=== PATIENT | female | born 1950 | race African-American/Black ===

== ENCOUNTER 2017-03-15 18:16 | Emergency (ER) | payer OTHER ==
[2017-03-15 18:29] VITALS: BP 152/77; PULSE 85; TEMP 98.5; BMI 29.0
[2017-03-15] MEDS ORDERED: ACETAMINOPHEN 500 MG TABLET (FP) PO ONE (19:20)
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
[2017-03-15] MEDS ORDERED: ACETAMINOPHEN 500 MG TABLET (FP) ONE (19:28)
== END 2017-03-15 19:33 | disposition home or self-care (01) ==
LOC: JERFT 18:16
DX: S13.4XXA Sprain of ligaments of cervical spine, initial encounter (principal); V49.59XA Passenger injured in collision with other motor vehicles in traffic accident, initial encounter; Y92.488 Other paved roadways as the place of occurrence of the external cause; Y93.89 Activity, other specified; Y99.8 Other external cause status
CPT/HCPCS: 99281-25

== ENCOUNTER 2017-08-24 15:33 | Emergency (ER) | payer OTHER ==
--- NOTE | 2017-08-24 15:38 | PDOC ---
Rapid Medical Evaluation Time Seen by Provider: 08/24/17 15:36 Medical Evaluation: Allergies Allergy/AdvReac Type Severity Reaction Status Date / Time Penicillins Allergy Verified 03/15/17 18:29 08/24/17 15:36 I have performed a brief in-person evaluation of this patient. The patient presents with a chief complaint of: "I have a UTI." frequency and dysuria x2 days Pertinent physical exam findings: ABD SNTND. No CVAT. I have ordered the following: UA, urine culture The patient will proceed to the ED for further evaluation. Discharge Disposition - Diagnosis Urinary frequency - Referrals - Patient Instructions - Post Discharge Activity
[2017-08-24 15:47] VITALS: BP 137/90; PULSE 80; TEMP 98.1; BMI 29.0
[2017-08-24 15:58] LABS: URINE APPEARANCE CLOUDY; URINE BILIRUBIN NEGATIVE (<2.0 mg/dL); URINE COLOR AMBER; URINE GLUCOSE (UA) NEGATIVE (NEGATIVE); URINE KETONE NEGATIVE (NEGATIVE); URINE NITRITE NEGATIVE (NEGATIVE); URINE PROTEIN NEGATIVE (NEGATIVE); URINE UROBILINOGEN NEGATIVE mg/dL (0.2-1.0)
[2017-08-24 16:00] LABS: URINE LEUK ESTERASE 1+ (NEGATIVE)
[2017-08-24 16:02] LABS: EPI CELLS RARE /HPF (FEW); URINE MUCUS FEW
--- NOTE | 2017-08-24 17:02 | PDOC ---
History of Present Illness - General Chief Complaint: Urinary Problem Stated Complaint: URINARY PROBLEM Time Seen by Provider: 08/24/17 15:36 History Source: Patient - History of Present Illness Timing/Duration: reports: constant Past History - Past Medical History Allergies/Adverse Reactions: Allergies Allergy/AdvReac Type Severity Reaction Status Date / Time Penicillins Allergy Verified 08/24/17 15:42 Home Medications: Ambulatory Orders Nitrofurantoin Monohyd/M-Cryst [Macrobid -] 100 mg PO BID #14 capsule 08/24/17 COPD: No - Immunization History Immunization Up to Date: Yes - Suicide/Smoking/Psychosocial Hx Smoking History: Never smoked Have you smoked in the past 12 months: No Information on smoking cessation initiated: No Hx Alcohol Use: No Drug/Substance Use Hx: No Substance Use Type: None Review of Systems - Review of Systems Constitutional: No: Chills, Fever ABD/GI: No: Nausea, Vomiting, Abdominal cramping : Yes: Dysuria, Frequency. No: Burning, Discharge, Flank Pain, Hematuria *Physical Exam - Vital Signs Last Vital Signs Temp Pulse Resp BP Pulse Ox 98.1 F 80 16 137/90 100 08/24/17 15:42 08/24/17 15:42 08/24/17 15:42 08/24/17 15:42 08/24/17 15:42 - Physical Exam General Appearance: Yes: Appropriately Dressed. No: Apparent Distress HEENT: positive: Normal Voice Neck: positive: Supple Respiratory/Chest: negative: Respiratory Distress Gastrointestinal/Abdominal: positive: Soft ( ). negative: Tender Musculoskeletal: negative: CVA Tenderness Integumentary: positive: Dry, Warm Neurologic: positive: Fully Oriented, Alert, Normal Mood/Affect ED Treatment Course - ADDITIONAL ORDERS Additional order review: Laboratory Results 08/24/17 15:46 Urine Color Veronica Urine Appearance Cloudy Urine pH 5.0 Ur Specific [place] 1.024 Urine Protein Negative Urine Glucose (UA) Negative Urine Ketones Negative Urine Blood Negative Urine Nitrite Negative Urine Bilirubin Negative Urine Urobilinogen Negative Ur Leukocyte Esterase 1+ H Urine WBC (Auto) 33 Urine RBC (Auto) 6 Ur Epithelial Cells Rare Urine Mucus Few Medical Decision Making - Medical Decision Making 08/24/17 16:58 66-year-old female, history of renal stones, recurrent UTIs, here with urinary frequency with dysuria x several days. States symptoms similar to prior UTI. No hematuria, flank pain, nausea, vomiting, fever or chills. Patient well- appearing and stable with UA remarkable for 1+ leuk esterase. Will treat and follow-up on ucx *DC/Admit/Observation/Transfer Diagnosis at time of Disposition: Urinary frequency - Discharge Dispostion Disposition: HOME Condition at time of disposition: Good - Prescriptions Prescriptions: Nitrofurantoin Monohyd/M-Cryst [Macrobid -] 100 mg PO BID #14 capsule - Referrals Referrals: Jose Alvarez MD [Primary Care Provider] - - Patient Instructions Printed Discharge Instructions: DI for Urinary Tract Infection (UTI) Additional Instructions: Take antibiotics as prescribed. We will call you if urine culture shows us that the antibiotic you were prescribed is not going to cover your infection. Return to ER for any worsening of symptoms. Otherwise follow-up with your primary doctor - Post Discharge Activity
== END 2017-08-24 17:04 | disposition home or self-care (01) ==
LOC: JERFT 15:33
DX: N39.0 Urinary tract infection, site not specified (principal); Z87.442 Personal history of urinary calculi
CPT/HCPCS: 81003; 81015; 87086; 99281-25

== ENCOUNTER 2019-12-22 16:31 | Emergency (ER) | payer OTHER ==
[2019-12-22 16:41] VITALS: BP 143/64; PULSE 99; TEMP 97.2; BMI 27.4
--- NOTE | 2019-12-22 17:29 | PDOC ---
History of Present Illness - General Chief Complaint: Pain Stated Complaint: SWOLLEN LEG Time Seen by Provider: 12/22/19 16:52 History Source: Patient Exam Limitations: No Limitations - History of Present Illness Initial Comments: 12/22/19 17:26 HISTORY OF PRESENT ILLNESS: 69-year-old woman who denies medical history presents emergency department for evaluation of atraumatic left lower leg swelling worsening over the past 7 days. Patient reports the swelling started in the left popliteal fossa now is extended distal and circumferential to the anterior knee. She reports she also has some pain which originates in the left hip and radiates down the left leg. She denies any recent travel, hormone therapy, smoking prolonged immobility. She denies trauma. No recent travel or sick contacts. PAST MEDICAL HISTORY: Denies past medical history SURGICAL HISTORY: Denies ALLERGIES: Penicillin REVIEW OF SYSTEMS General/Constitutional: Denies fever or chills. Denies weakness, weight change. HEENT: Denies change in vision. Denies ear pain or discharge. Denies sore throat. Cardiovascular: Denies chest pain or shortness of breath. Respiratory: Denies cough, wheezing, or hemoptysis. Gastrointestinal: Denies nausea, vomiting, diarrhea or constipation. Denies rectal bleeding. Genitourinary: Denies dysuria, frequency, or change in urination. Musculoskeletal: See HPI Skin and breasts: Denies rash or easy bruising. Neurologic: Denies headache, vertigo, loss of consciousness, or loss of sensation. Psychiatric: Denies depression or anxiety. Endocrine: Denies increased thirst. Denies abnormal weight change. Hematologic/Lymphatic: Denies anemia, easy bleeding, or history of blood clots. Allergic/Immunologic: Denies hives or skin allergy. Denies latex allergy. PHYSICAL EXAM General Appearance: Well-appearing, appropriately dressed. No apparent distress, no intoxication. Cardiovascular: RRR. S1, S2. No JVD, murmur, bradycardia, tachycardia. Vascular Pulses: Dorsalis-Pedis (R): 2+, Dorsalis-Pedis (L): 2+ Musculoskeletal/Extremities: Swelling present to the left popliteal fossa extending to the left anterior knee. Full active range of motion with flexion and extension of the left knee noted. No erythema is present. No bony deformity, crepitus, deformity or step-off is appreciated. No laxity present in the knee. Left patella is mobile. Neurovascularly intact. Integumentary: Appropriate color, dry, warm. No cyanosis, erythema, jaundice or rash Past History - Medical History Allergies/Adverse Reactions: Allergies Allergy/AdvReac Type Severity Reaction Status Date / Time Penicillins Allergy Verified 12/22/19 16:41 Home Medications: Ambulatory Orders Nitrofurantoin Monohyd/M-Cryst [Macrobid -] 100 mg PO BID #14 capsule 08/24/17 COPD: No Other medical history: DENIES - Reproductive History Is Patient Now?: No - Immunization History Immunization Up to Date: Yes - Psycho-Social/Smoking History Smoking History: Never smoked Have you smoked in the past 12 months: No Information on smoking cessation initiated: No - Substance Abuse Hx (Audit-C & DAST Scrn) How often the patient has a drink containing alcohol: Never Score: In Men: 4 or > Positive; In Women: 3 or > Positive: 0 Screen Result (Pos requires Nsg. Audit-10AR): Negative In the last yr the pt used illegal drug/Rx for NonMed reason: No Score: Yes response is considered Positive: 0 Screen Result (Positive result requires Nsg. DAST-10): Negative *Physical Exam - Vital Signs Last Vital Signs Temp Pulse Resp BP Pulse Ox 97.2 F L 99 H 18 143/64 98 12/22/19 16:38 12/22/19 16:38 12/22/19 16:38 12/22/19 16:38 12/22/19 16:38 ED Treatment Course - RADIOLOGY Radiology Studies Ordered: Category Date Time Status DUPLEX VASCUL US-1 LEG [US] Stat Ultrasound 12/22/19 17:25 Ordered Medical Decision Making - Medical Decision Making 12/22/19 17:29 A/P: 69-year-old woman with unilateral swelling to the left knee Duplex Dopplers Reassess 12/22/19 18:57 Ultrasound is read by Dr. Salas: No DVT is identified involving the left leg. Note is made of an approximate 3.7 x 3 x 1.4 cm popliteal fossa cyst. Discharge home with orthopedic follow-up I discussed the physical exam findings, ancillary test results and final diagnoses with the patient. I answered all of the patient's questions. The patient was satisfied with the care received and felt comfortable with the discharge plan and treatment plan. The patient will call their primary care physician within 24 hours to arrange follow-up and will return to the Emergency Department with any new, persistent or worsening symptoms. Portions of this note have been documented using voice recognition software. As a result, errors may occur in the channel worker process. Effort has been made to correct all grammatical and channel worker error, but some may have been missed which may produce sporadic inaccurate channel worker or nonsensical phrases. Discharge - Discharge Information Problems reviewed: Yes Clinical Impression/Diagnosis: Lomeli's cyst of knee Qualifiers: Laterality: left Qualified Code(s): M71.22 - Synovial cyst of popliteal space [Lomeli], left knee Condition: Stable Disposition: HOME - Admission No - Follow up/Referral Referrals: Jose Alvarez MD [Primary Care Provider] - Franklin Walsh DO [Staff Physician] - - Patient Discharge Instructions Additional Instructions: You be given a referral for orthopedics. Call to schedule an evaluation of the Lomeli's cyst. Take Tylenol or Motrin as needed for pain. Return to the emergency department for any new or worsening symptoms. Thank you very much for choosing us to provide your emergent healthcare needs. - Post Discharge Activity
== END 2019-12-22 19:00 | disposition home or self-care (01) ==
LOC: JERFT 16:31
DX: M71.22 Synovial cyst of popliteal space [Baker], left knee (principal)
CPT/HCPCS: 93971-TC; 99284-25

== ENCOUNTER 2020-02-02 04:24 | Day surgery (SDC) | payer OTHER ==
--- OUTSIDE RECORDS SUMMARY | 2019-12-26 08:35 | XMS ---
:1950 Author Organization [facility] Support Name Relationship Address Phone RE Unavailable Unavailable Unavailable MARY BATISTA SON [address] [place] [address] MARY BATISTA Child [address] [place] [address] Re-disclosure Warning The records that you are about to access may contain information from federally- assisted alcohol or drug abuse programs. If such information is present, then the following federally mandated warning applies: This information has been disclosed to you from records protected by federal confidentiality rules (42 CFR part 2). The federal rules prohibit you from making any further disclosure of this information unless further disclosure is expressly permitted by the written consent of the person to whom it pertains or as otherwise permitted by 42 CFR part 2. A general authorization for the release of medical or other information is NOT sufficient for this purpose. The Federal rules restrict any use of the information to criminally investigate or prosecute any alcohol or drug abuse patient.The records that you are about to access may contain highly sensitive health information, the redisclosure of which is protected by Article 27-F of the [facility] Public Health law. If you continue you may haveaccess to information: Regarding HIV / AIDS; Provided by facilities licensed or operated by the [facility] Office of Mental Health; or Provided by the [facility] Office for People With Developmental Disabilities. If such information is present, then the following [facility] mandated warning applies: This information has been disclosed to you from confidential records which are protected by state law. State law prohibits you from making any further disclosure of this information without the specific written consent of the person to whom it pertains, or as otherwise permitted by law. Any unauthorized further disclosure in violation of state law may result in a fine or mcc sentence or both. A general authorization for the release of medical or other information is NOT sufficient authorization for further disclosure. Insurance Providers Payer name Policy type Policy ID Covered Covered republican's Policy P antony / Coverage republican ID relationship to Faith Inf ormation type faith PGBA, [id number] SP [id number]/ MEDICAID [id number] SP [id number] WELLCARE [id number] SP [id number] MEDICARE WPS [id number] [place] [id number] FOR LIFE PGBA, [id number] SP [id number] LLC/ PGBA, [id number] SP [id number] LLC/ Results ID Date Data Source [id number] 12/08/2019 04:08:00 PM EDT [facility] Name Value Range Interpretation Code Description Data Amelie rce(s) Supporting Document(s ) SARS-COV-2 [facility] QL YASIR+PROBE This lab was ordered by [facility] nd reported by [facility]. Procedure
[2020-01-31 12:27] VITALS: BMI 30.7
[~2020-02-02 04:24] MED LIST: EPINEPHrine/PF 1 MG/1 ML (1:1,000) AMPULE SQ ONE; TOBRAMYCIN/DEXAMETHASONE OPHTH. OINTMENT 1 TUBE OS ONE
--- OUTSIDE RECORDS SUMMARY | 2020-02-02 04:27 | XMS ---
:1950 Author Organization [facility] Support Name Relationship Address Phone RE, RETIRED Unavailable Unavailable Unavailable RE Unavailable Unavailable Unavailable MARY BATISTA SON [address] [place] [address] MARY BATISTA Child [address] [place] [address] Re-disclosure Warning The records that you are [...] is protected by Article 27-F of the [facility] Public Health law. If you continue you may haveaccess to information: Regarding HIV / AIDS; Provided by facilities licensed or operated by the [facility] Office of Mental Health; or Provided by the [facility] Office for People With Developmental Disabilities. If such information is present, then the following [facility] mandated warning applies: This information has been [...] law may result in a fine or longterm sentence or both. A general authorization for the release of medical or other information is NOT sufficient authorization for further disclosure. Insurance Providers Payer name Policy type Policy ID Covered Covered alliance party's Policy P antony / Coverage alliance party ID relationship to Faith Inf ormation type faith MEDICAID [id number] SP [id number] WELLCARE [id number] SP [id number] MEDICARE PGBA, [id number] SP [id number]/ MEDICAID [id number] SP [id number] WELLCARE [id number] SP [id number] MEDICARE W[place] [id number] [place] [id number] FOR LIFE PGBA, [id number] SP [id number] LLC/ PGBA, [id number] SP [id number] LLC/ Results ID Date Data Source [id number] 01/28/2020 10:05:00 AM EDT [facility] Name Value Range Interpretation Description Data Sup porting Code Source(s) Document(s ) SARS [facility] coronavirus 2 RNA This lab was ordered by [facility] and reported by [facility]. ID Date Data Source [id number] 12/08/2019 04:08:00 PM EDT [facility] Name Value Range Interpretation Code Description Data Amelie rce(s) Supporting Document(s ) SARS-COV-2 [facility] QL YASIR+PROBE This lab was ordered by [facility] reported by [facility]. Procedure
[2020-02-02] MEDS ORDERED: TOBRAMYCIN/DEXAMETHASONE OPHTH. OINTMENT 1 TUBE ONE (06:40)
[2020-02-02] MEDS ORDERED: POVIDONE-IODINE 5% OPHTHALMIC PREP 30 ML SOLUTION ONE (06:40)
[2020-02-02] MEDS ORDERED: TETRACAINE 0.5% OPHTH SOLN 2 ML BOTTLE ONE (06:40)
[2020-02-02] MEDS ORDERED: LIDOCAINE HCL/PF 1% SDV 5ML VIAL ONE (06:40)
[2020-02-02] MEDS ORDERED: CHONDROITIN SU A/HYALUR SOD 1 KIT ONE (06:42)
[2020-02-02] MEDS ORDERED: ACETAMINOPHEN 325 MG TABLET (FP) PO PRN (07:20)
[2020-02-02] MEDS ORDERED: TROPICAMIDE 1% OPHTH SOLN 15 ML BOTTLE ONE (08:52)
[2020-02-02] MEDS ORDERED: MIDAZOLAM HCL 2 MG/2 ML SINGLE DOSE VIAL ONE (08:52)
[2020-02-02] MEDS: CIPROFLOXACIN HCL 0.3% OPHTH 2.5ML BOTTLE OP SCH ×3 (09:00→09:10)
[2020-02-02] MEDS: PHENYLEPHRINE 2.5% OPHTH SOLN 15 ML BOTTLE OP SCH ×3 (09:00→09:10)
[2020-02-02] MEDS: TROPICAMIDE 1% OPHTH SOLN 15 ML BOTTLE OP SCH ×3 (09:00→09:10)
[2020-02-02] MEDS: KETOROLAC TROMETHAMINE 0.5% EYE DROP 1 DROP DROPS OP SCH ×3 (09:00→09:10)
--- NOTE | 2020-02-02 09:57 | HP ---
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 RGP wearer) Eye Medications: vigamox 0/3 Previous Eye Surgery: none - Medical History Illnesses: None Current Medications: Ambulatory Orders Cholecalciferol (Vitamin D3) [Vitamin D3] 1 tab SL DAILY 01/31/20 Inulin/Chromium Picolinate [Fiber Gummies] 1 each PO ASDIR 01/31/20 L.acidoph,Paracasei, B.lactis [Probiotic] 1 each PO ASDIR 01/31/20 Lutein Extract/Zeaxanthin Ext [Lutein 15 mg Softgel] 1 each PO DAILY 01/31/20 Magnesium Oxide [Magnesium] 500 mg PO DAILY 01/31/20 Vitamin B Complex 1 each PO DAILY 01/31/20 Zinc 50 mg PO DAILY 01/31/20 Allergies/Adverse Reactions: Allergies Allergy/AdvReac Type Severity Reaction Status Date / Time Penicillins Allergy Verified 02/02/20 09:20 Ocular Examination - Best Corrected Visual Acuity Distance: Right eye: 20/30 Distance: Left eye: 20/40 - External/Slit Lamp Examination Abnormalities: ptosis, decreased tbut, loss of pupillary ruff - Intraocular Pressure Intraocular Pressure (mm/Hg) - Right eye: 15 Intraocular Pressure (mm/Hg)-Left eye: 16 - Lens Lens: 2+ NS , cortical flecks - Vitreous/Retina Vitreous/Retina: C:D 0.4 , ERM , pigmentary change - Special Examination M - Right eye: -11.75-2.00 x 065 M - Left eye: -11.00 -1.50 x 115 K - Right eye: 43.44/44.06 x167 K - Left eye: 44.18/44.47 x147 AL - Right eye: 28.92 AL - Left eye: 28.14 IOL bag: +11.0 AUOOTO IOL sulcus: +10.5 MN60AC IOL AC: +8.00 MTA 4UO - Impression Impression: Cataract Left Eye (nuclear) - Plan Plan: Phacoemulsification and cataract extraction - IOL Left eye Post-hospital care will be provided in office on: 02/03/20
--- NOTE | 2020-02-02 09:57 | HP ---
History & Physical Update - History History: No Change - Physical Physical: No Change - Assessment Assessment: No Change - Plan Plan: No Change (H and P reviewed from Dr. Cole from 02/27/2020, no changes)
[2020-02-02] MEDS ORDERED: TETRACAINE 0.5% OPHTH SOLN 2 ML BOTTLE OS ONE (10:09)
[2020-02-02] MEDS ORDERED: POVIDONE-IODINE 5% OPHTHALMIC PREP 30 ML SOLUTION OS ONE (10:11)
[2020-02-02] MEDS ORDERED: LIDOCAINE HCL 1% PRESERVATIVE FREE - 30ML VIAL IO ONE (10:15)
[2020-02-02] MEDS ORDERED: CHONDROITIN SU A/HYALUR SOD 1 KIT IO ONE (10:15)
[2020-02-02] MEDS ORDERED: BSS (NA/CA/MG/K) BALANCED SALT SOLUTION OPHTH SOLN 15 ML BOTTLE OS ONE (10:15)
[2020-02-02] MEDS ORDERED: EPINEPHrine/PF 1 MG/1 ML (1:1,000) AMPULE SQ ONE (10:20)
[2020-02-02] MEDS ORDERED: TOBRAMYCIN/DEXAMETHASONE OPHTH. OINTMENT 1 TUBE OS ONE (10:29)
--- NOTE | 2020-02-02 10:40 | OP ---
Ophthalmology Operative Note Pre-Operative Diagnosis: Cataract (NS) Affected Eye: Left Operation: Phacoemulsification and cataract extraction with PCIOL Findings: Nuclear sclerotic cataract left eye Post-Operative Diagnosis: Same as Pre-op Diesel Plant Operator: Peggy Anesthesiologist: Derrick Chacon Anesthesia: Topical Specimens Removed: none Estimated blood loss: < 1 cc Drains & Tubes with Location: none Operative Report Dictated: Yes
[2020-02-02 10:59] VITALS: TEMP 97.7
[2020-02-02] MEDS ORDERED: ONDANSETRON 4 MG/2 ML VIAL IVPUSH PRN (11:10)
[2020-02-02] MEDS ORDERED: LACTATED RINGERS SOLUTION 1,000 ML IV SCH (11:15)
[2020-02-02 11:20] VITALS: BP 126/79; PULSE 72
--- NOTE | 2020-02-02 13:01 | OP ---
DATE OF OPERATION: DATE OF DICTATION: 02/02/2020 PREOPERATIVE DIAGNOSIS: Nuclear sclerotic cataract, left eye. POSTOPERATIVE DIAGNOSIS: Nuclear sclerotic cataract, left eye. PROCEDURE: Phacoemulsification and cataract extraction with insertion of posterior chamber intraocular lens, left eye. SURGEON: Silvia Torrez MD ENVIRONMENTAL COMPLIANCE MANAGER: None. ANESTHESIA: Topical. ANESTHESIOLOGIST: Derrick Chacon CRNA OPERATIVE PROCEDURE: The patient received Tetracaine eye drops and was gently sedated and prepped and draped in the usual sterile fashion so as to expose only the left eye. Ophthalmic Betadine was instilled into the inferior fornix and lashes were taped out of the surgical field. An eyelid speculum was placed into the left eye. Paracentesis was made in inferior temporal clear cornea at the limbus. Then 0.5 mL of nonpreserved lidocaine 1% was injected into the anterior chamber and then 1 mL of dilute epinephrine 1:10,000 was injected into the anterior chamber to improve pupillary dilation. Viscoelastic material was instilled into the anterior chamber via the paracentesis. A 2.4-mm keratome blade was then used to create the main incision in temporal clear cornea at the limbus. A continuous curvilinear capsulorhexis was performed using a cystotome and Utrata forceps. Hydrodissection of the lens cortex was performed using BSS on a cannula until the nucleus was noted to be freely rotating. The phacoemulsification tip was then inserted via the main wound and used to scope 2 perpendicular grooves into the lens nucleus. The nucleus was cracked into 4 quadrants. Each quadrant was lifted out of the capsule into the iris plane and individually phacoemulsified. The remaining cortical material was then aspirated using the irrigation/aspiration port. The capsular bag was inflated using ProVisc and a preloaded AcrySof lens model [id number] power +11.0 diopters was injected into the capsular bag. It was centered using a Sinskey hook. The residual viscoelastic material was removed from the anterior chamber using irrigation and aspiration. The wound edges were hydrated using BSS. The wound was tested for leakage and was found to be watertight. Tobradex ointment was placed in the eye, and the speculum was removed from the eye, and the eyelid was closed. A sterile dressing and shield were placed over the eye. The patient was transferred to the recovery room in stable condition, told to follow up in 1 day. Leon [id number] MTDD
== END 2020-02-02 11:20 | disposition home or self-care (01) ==
LOC: JASU-SURG 04:24
PROVIDERS: ATTEND Ophthalmology
PROC: 08RK3JZ Replacement of Left Lens with Synthetic Substitute, Percutaneous Approach (ICD-10-PCS; principal; 2020-02-02 10:30)
DX: H25.12 Age-related nuclear cataract, left eye (principal)
CPT/HCPCS: 82962

== ENCOUNTER 2020-02-23 04:32 | Day surgery (SDC) | payer OTHER ==
[2020-02-22 10:17] VITALS: BMI 28.2
[~2020-02-23 04:32] MED LIST changes: +BSS (NA/CA/MG/K) BALANCED SALT SOLUTION OPHTH SOLN 15 ML BOTTLE OD ONE; +CHONDROITIN SU A/HYALUR SOD 1 KIT IO ONE; +LIDOCAINE HCL 1% PRESERVATIVE FREE - 30ML VIAL IO ONE; +POVIDONE-IODINE 5% OPHTHALMIC PREP 30 ML SOLUTION OD ONE; +TETRACAINE 0.5% OPHTH SOLN 2 ML BOTTLE OD ONE; +TOBRAMYCIN/DEXAMETHASONE OPHTH. OINTMENT 1 TUBE OD ONE; -TOBRAMYCIN/DEXAMETHASONE OPHTH. OINTMENT 1 TUBE OS ONE
[2020-02-23] MEDS: CIPROFLOXACIN HCL 0.3% OPHTH 2.5ML BOTTLE ONE ×3 (06:30→06:50)
[2020-02-23] MEDS: DICLOFENAC SODIUM 0.1% OPHTHALMIC 2.5ML BOTTLE ONE ×3 (06:30→06:55)
[2020-02-23] MEDS ORDERED: PHENYLEPHRINE 2.5% OPHTH SOLN 15 ML BOTTLE OD ONE ×3 (06:30→06:55)
[2020-02-23] MEDS: TROPICAMIDE 1% OPHTH SOLN 15 ML BOTTLE ONE ×3 (06:30→06:55)
[2020-02-23] MEDS ORDERED: TOBRAMYCIN/DEXAMETHASONE OPHTH. OINTMENT 1 TUBE ONE (06:39)
[2020-02-23] MEDS ORDERED: POVIDONE-IODINE 5% OPHTHALMIC PREP 30 ML SOLUTION ONE (06:40)
[2020-02-23] MEDS ORDERED: LIDOCAINE HCL/PF 1% SDV 5ML VIAL ONE (06:40)
[2020-02-23] MEDS ORDERED: EPINEPHrine/PF 1 MG/1 ML (1:1,000) AMPULE ONE (06:40)
[2020-02-23] MEDS ORDERED: TETRACAINE 0.5% OPHTH SOLN 2 ML BOTTLE ONE (06:40)
[2020-02-23] MEDS ORDERED: CHONDROITIN SU A/HYALUR SOD 1 KIT ONE (06:41)
[2020-02-23] MEDS ORDERED: MIDAZOLAM HCL 2 MG/2 ML SINGLE DOSE VIAL ONE (07:23)
[2020-02-23] MEDS ORDERED: TETRACAINE 0.5% OPHTH SOLN 2 ML BOTTLE OD ONE (07:35)
[2020-02-23] MEDS ORDERED: POVIDONE-IODINE 5% OPHTHALMIC PREP 30 ML SOLUTION OD ONE (07:36)
[2020-02-23] MEDS ORDERED: LIDOCAINE HCL 1% PRESERVATIVE FREE - 30ML VIAL IO ONE (07:44)
[2020-02-23] MEDS ORDERED: CHONDROITIN SU A/HYALUR SOD 1 KIT IO ONE (07:44)
[2020-02-23] MEDS ORDERED: BSS (NA/CA/MG/K) BALANCED SALT SOLUTION OPHTH SOLN 15 ML BOTTLE OD ONE (07:44)
[2020-02-23] MEDS ORDERED: EPINEPHrine/PF 1 MG/1 ML (1:1,000) AMPULE SQ ONE (07:51)
[2020-02-23] MEDS ORDERED: TOBRAMYCIN/DEXAMETHASONE OPHTH. OINTMENT 1 TUBE OD ONE (08:05)
[2020-02-23] MEDS ORDERED: BSS (NA/CA/MG/K) BALANCED SALT SOLUTION OPHTH SOLN 15 ML BOTTLE ONE (08:19)
[2020-02-23] MEDS ORDERED: ACETAMINOPHEN 325 MG TABLET (FP) PO PRN (09:46)
[2020-02-23] MEDS ORDERED: ONDANSETRON 4 MG/2 ML VIAL IVPUSH PRN (09:46)
[2020-02-23] MEDS ORDERED: LACTATED RINGERS SOLUTION 1,000 ML IV SCH (10:00)
[2020-02-23 11:02] VITALS: PULSE 78; TEMP 97.8
[2020-02-23 11:06] VITALS: BP 128/70
== END 2020-02-23 09:45 | disposition home or self-care (01) ==
LOC: JASU-SURG 04:32
PROVIDERS: ATTEND Ophthalmology
PROC: 08RJ3JZ Replacement of Right Lens with Synthetic Substitute, Percutaneous Approach (ICD-10-PCS; principal; 2020-02-23 07:30)
DX: H25.11 Age-related nuclear cataract, right eye (principal)

== ENCOUNTER 2021-06-26 12:38 | Emergency (ER) | payer OTHER ==
[2021-06-26 12:43] VITALS: BP 129/78; PULSE 68; TEMP 98.7; BMI 27.3
== END 2021-06-26 13:54 | disposition home or self-care (01) ==
LOC: JERFT 12:38
DX: H81.03 Meniere's disease, bilateral (principal)
CPT/HCPCS: 99281-25

== ENCOUNTER 2022-01-31 04:10 | Day surgery (SDC) | payer OTHER ==
[2022-01-29 11:00] VITALS: BMI 33.1
[2022-01-31 08:28] VITALS: TEMP 97.7
[2022-01-31 09:06] VITALS: RESP 12
[2022-01-31 09:53] VITALS: BP 131/61; PULSE 62
== END 2022-01-31 09:29 | disposition home or self-care (01) ==
LOC: JASU-ENDO 04:10
PROVIDERS: ATTEND Internal Medicine Gastroenterology
PROC: 0DBL8ZX Excision of Transverse Colon, Via Natural or Artificial Opening Endoscopic, Diagnostic (ICD-10-PCS; 2022-01-31)
PROC: 0DBP8ZX Excision of Rectum, Via Natural or Artificial Opening Endoscopic, Diagnostic (ICD-10-PCS; principal; 2022-01-31 08:00)
DX: Z12.11 Encounter for screening for malignant neoplasm of colon (principal); D12.8 Benign neoplasm of rectum; K63.5 Polyp of colon; K64.8 Other hemorrhoids; K57.30 Diverticulosis of large intestine without perforation or abscess without bleeding
CPT/HCPCS: 88305-TC